=== PATIENT | male | born 1935 | race Caucasian/White ===

== ENCOUNTER 2016-12-28 10:59 | Day surgery (SDC) | payer MEDICARE, BC | END 2016-12-28 14:17 | disposition short-term general hospital (02) | LOC: CLPAIN 10:59 → SURGOP 10:59 | PROC: 3E0U3BZ Introduction of Anesthetic Agent into Joints, Percutaneous Approach (ICD-10-PCS; principal; 2016-12-28) | PROC: 3E0U33Z Introduction of Anti-inflammatory into Joints, Percutaneous Approach (ICD-10-PCS; 2016-12-28) | DX: M47.816 Spondylosis without myelopathy or radiculopathy, lumbar region (principal); M41.9 Scoliosis, unspecified; M48.06 Spinal stenosis, lumbar region | CPT/HCPCS: J1040 ==

== ENCOUNTER 2017-02-01 11:24 | Day surgery (SDC) | payer MEDICARE, BC | END 2017-02-01 14:40 | disposition short-term general hospital (02) | LOC: CLPAIN 11:24 → SURGOP 11:24 → EDSTATUS 12:10 → SURGOP 14:40 | DX: M48.06 Spinal stenosis, lumbar region (principal) | CPT/HCPCS: J1040; Q9967 ==

== ENCOUNTER → 2017-03-01 | Outpatient (CLI) | payer MEDICARE, BC | END | disposition short-term general hospital (02) | LOC: CLPAIN 08:21 | DX: M47.816 Spondylosis without myelopathy or radiculopathy, lumbar region (principal); M48.06 Spinal stenosis, lumbar region; M46.1 Sacroiliitis, not elsewhere classified; G89.4 Chronic pain syndrome; M25.552 Pain in left hip ==

== ENCOUNTER 2017-03-15 11:25 | Day surgery (SDC) | payer MEDICARE, BC | END 2017-03-15 12:47 | disposition short-term general hospital (02) | LOC: SURGOP 11:25 | PROC: 3E0U3BZ Introduction of Anesthetic Agent into Joints, Percutaneous Approach (ICD-10-PCS; principal; 2017-03-15) | PROC: 3E0U33Z Introduction of Anti-inflammatory into Joints, Percutaneous Approach (ICD-10-PCS; 2017-03-15) | DX: G89.4 Chronic pain syndrome (principal); M46.1 Sacroiliitis, not elsewhere classified; M19.90 Unspecified osteoarthritis, unspecified site; E78.00 Pure hypercholesterolemia, unspecified; I10 Essential (primary) hypertension; G47.30 Sleep apnea, unspecified; M47.816 Spondylosis without myelopathy or radiculopathy, lumbar region; M48.06 Spinal stenosis, lumbar region; Z88.0 Allergy status to penicillin; Z79.82 Long term (current) use of aspirin; Z79.899 Other long term (current) drug therapy; Z79.891 Long term (current) use of opiate analgesic | CPT/HCPCS: G0260-LT; J1040; J3301 ==